=== PATIENT | female | born 1990 | race Caucasian/White ===

== ENCOUNTER 2017-05-18 08:21 | Emergency (ER) | payer SELFPAY ==
--- NOTE | 2017-05-18 09:38 | UC ---
Bite Injury/Animal HPI - HPI Summary HPI Summary: Patient presents s/p cat bite of the right palm, and scratches of the left and right forearms, that occurred while at work this morning. Bleeding is controlled. She states she as well as the animal have had rabies vaccination. She was required to come in for an evaluation. She denies any numbness or tingling of the hands or fingers, and reports full range of motion. - History of Current Complaint Chief Complaint: UCBiteInjury Stated Complaint: CAT BITE Time Seen by Provider: 05/18/17 09:15 Hx Obtained From: Patient Hx Last Menstrual Period: 05/01/17 ?: No Severity Currently: Moderate Severity Initially: Moderate Onset/Duration: Sudden Onset, Lasting Hours Type of Bite: Animal Has Animal Been Immunized?: Yes Character: Puncture, Abrasion/Laceration Aggravating Factor(s): Nothing Alleviating Factor(s): Nothing Associated Signs And Symptoms: Positive: Erythema Hx of Bite: Unprovoked Animal Available for Observation: Yes Animal Control Notified: Yes - Allergies/Home Medications Allergies/Adverse Reactions: Allergies Allergy/AdvReac Type Severity Reaction Status Date / Time No Known Allergies Allergy Verified 05/18/17 08:35 PMH/Surg Hx/FS Hx/Imm Hx Previously Healthy: Yes - Surgical History Surgical History: None - Family History Known Family History: Positive: Cardiac Disease - Social History Occupation: Employed Full-time Lives: Alone Alcohol Use: None Substance Use Type: None Smoking Status (MU): Never Smoked Tobacco Review of Systems Constitutional: Negative Skin: Other - puncture wound, and abrasions of hands and forearms. Eyes: Negative ENT: Negative Motor: Negative Neurovascular: Negative Musculoskeletal: Negative Neurological: Negative All Other Systems Reviewed And Are Negative: No Physical Exam Triage Information Reviewed: Yes Appearance: Well-Appearing Vital Signs: Initial Vital Signs Temp 99.2 F 05/18/17 08:31 Pulse 100 05/18/17 08:31 Resp 16 05/18/17 08:31 BP 134/79 05/18/17 08:31 Pulse Ox 100 05/18/17 08:31 Vital Signs Reviewed: Yes Eye Exam: Normal ENT Exam: Normal Dental Exam: Normal Neck exam: Normal Neck: Positive: 1 Respiratory Exam: Normal Cardiovascular Exam: Normal Musculoskeletal Exam: Normal Skin Exam: Other - right palm of hand superficial puncture wound noted. left forearm with several linear abrasions noted. surrounding redness. bleeding controlled. vasc; radial and ulnare pulses presents. neruo. no deficits. rom intact in all planes. Bite Injury Course/Dx - Course Course Of Treatment: Patient presents s/p cat bite and scratches onset prior to arrival. She and the animal are fully immunzed against rabies. The wounds were cleaned and bacitracin applied. Augmentin 875 mg by mouth twice daily x 10 days. Wound care instructions were provided as well as signs and symtpoms of infections which included keep clean and dry, apply antibiotics ointment, and if increased redness, swelling, pain or drainage must go directly to the emergency department for evaluation. Patient verbalzied and was in agreement with the discharge plan. - Differential Dx/Diagnosis Differential Diagnosis/HQI/PQRI: Puncture, Other - cat bite abrasions Provider Diagnoses: cat bite. puncture wound. abrasions Discharge - Discharge Plan Condition: Stable Disposition: HOME Prescriptions: Amoxicillin/Clavulanate TAB* [Augmentin TAB 875*] 875 mg PO BID #20 tab Patient Education Materials: Animal Bite (ED) Referrals: Nasima Paulino MD [Primary Care Provider] -
[2017-05-18] MEDS ORDERED: Tetan/Diph/Pertus SYR(Tdap)* 0.5 ML SYR(BOOSTRIX) use SYR IM ONE (10:00)
[2017-05-18 11:07] VITALS: BP 108/62
== END 2017-05-18 10:40 | disposition home or self-care (01) ==
LOC: UCEAST 08:21
DX: T14.8XXA Other injury of unspecified body region, initial encounter (principal); W55.01XA Bitten by cat, initial encounter; Y92.9 Unspecified place or not applicable
CPT/HCPCS: 90471; 90715; 99213; G0463

== ENCOUNTER 2018-12-09 14:10 | Emergency (ER) | payer OTHER ==
[2018-12-09 14:44] VITALS: BP 143/90
--- NOTE | 2018-12-09 14:56 | UC ---
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 Her last tetanus is up-to-date and she also has the rabies immunization series herself. The cat itself was up-to-date on immunizations as well. - History of Current Complaint Chief Complaint: UCBiteInjury Stated Complaint: CAT BITE Time Seen by Provider: 12/09/18 14:44 Hx Obtained From: Patient Hx Last Menstrual Period: 12/08/18 ?: No Severity Currently: Mild Severity Initially: Mild Pain Intensity: 2 Onset/Duration: Sudden Onset Type of Bite: Animal - Cat that was up-to-date on immunizations. Has Animal Been Immunized?: Yes Character: Abrasion/Laceration - Superficial scratch to left ring finger Aggravating Factor(s): Nothing Alleviating Factor(s): Nothing Associated Signs And Symptoms: Positive: Negative Animal Available for Observation: Yes - Risk Factors Infection/Sepsis Risk Factors: Negative - Allergies/Home Medications Allergies/Adverse Reactions: Allergies Allergy/AdvReac Type Severity Reaction Status Date / Time No Known Allergies Allergy Verified 12/09/18 14:45 PMH/Surg Hx/FS Hx/Imm Hx Previously Healthy: Yes - Surgical History Surgical History: Yes Surgery Procedure, Year, and Place: wisdom teeth as teenager - Family History Known Family History: Positive: Cardiac Disease - Social History Alcohol Use: None Substance Use Type: None Smoking Status (MU): Never Smoked Tobacco Review of Systems All Other Systems Reviewed And Are Negative: Yes Skin: Positive: Other - Superficial scratch to palmar aspect of left ring finger from a cat bite. Is Patient Immunocompromised?: No Physical Exam Triage Information Reviewed: Yes Appearance: Well-Appearing, No Pain Distress, Well-Nourished Vital Signs: Initial Vital Signs Temp 98.6 F 12/09/18 14:39 Pulse 80 12/09/18 14:39 Resp 16 12/09/18 14:39 BP 143/90 12/09/18 14:39 Pulse Ox 100 12/09/18 14:39 Vital Signs Reviewed: Yes Musculoskeletal: Positive: Strength Intact, ROM Intact - Good peripheral pulses neuro sensation capillary refill, good finger strength with flexion extension against resistance Neurological Exam: Normal Psychological Exam: Normal Skin: Positive: Other - Superficial scratch to palmar aspect of proximal portion left ring finger approximately 1.0 cm long. Bleeding. 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 She is up-to-date on her rabies and tetanus immunizations and the cat who bit her is also up-to-date on immunizations. At this point in time I don't feel this is getting infected however she is to observe it for any erythema or swelling or increased pain and start Augmentin if it looks like it starting an infection. She can do some warm salt water soaks 4-6 times a day as well. Patient is agreeable to plan of action. - Differential Dx/Diagnosis Provider Diagnosis: Cat bite of finger Discharge - Sign-Out/Discharge Documenting (check all that apply): Patient Departure All imaging exams completed and their final reports reviewed: No Studies - Discharge Plan Condition: Fair Disposition: HOME Prescriptions: Amoxicillin/Clavulanate TAB* [Augmentin TAB 875*] 875 mg PO BID 10 Days #20 tab Patient Education Materials: Animal Bite (ED) Referrals: Nasima Paulino MD [Primary Care Provider] - Additional Instructions: Keep the area clean and dry but you may want to do some warm salt water soaks. Watch for signs of infection. You do not need to start the antibiotic unless the area starts getting hot, red and tender. - Billing Disposition and Condition Condition: FAIR Disposition: Home
== END 2018-12-09 14:56 | disposition home or self-care (01) ==
LOC: UCEAST 14:10
DX: S60.415A Abrasion of left ring finger, initial encounter (principal); W55.01XA Bitten by cat, initial encounter; Y93.K9 Activity, other involving animal care; Y92.89 Other specified places as the place of occurrence of the external cause; Y99.0 Civilian activity done for income or pay
CPT/HCPCS: 99212; G0463

== ENCOUNTER 2019-09-05 00:12 | Inpatient (IN) | payer BC ==
[2019-09-05] MEDS ORDERED: Buffered Lidocaine 1% SYRIN* 1 ML/SYRINGE INTRADERM ONE (01:48)
[2019-09-05] MEDS ORDERED: Lactated Ringers 1000 ML Bag* 1,000 ML IV ONE ×2 (01:48→06:41)
--- NOTE | 2019-09-05 02:00 | HP ---
General Information - Reason for Visit Patient reports contractions increasing in intensity since this afternoon. Also has had increased mucusy/fluid discharge. - General Information Maternal Age: 29 Grav: 1 Para: 0 SAB: 0 IEA: 0 Estimated Due Date: 09/14/19 Determined By: LMP Maternal Blood Type and Rh: O Positive - Results this Serology/RPR Result: Non-Reactive Rubella Result: Immune HBsAg Result: Negative HIV Result: Negative GBS Culture Result: Negative Past Medical History Delivery History: See Records Delivery History Comment: No previous pregnancies Pertinent Past Medical History: See Records Past Medical History Comment: Migraine, varicosities Pertinent Past Surgical History: See Records Past Surgical History Comment: [place] teeth removal 2008 Left saphenous vein ablation 2018 Pertinent Family History: See Records Family History Comment: COPD HTN Kidney stones aneurysm - Antepartal Records Antepartal Records: Reviewed, Complicated by: - Obesity Review of Systems Constitutional: Uncomfortable CV Complaint: No Respiratory: Shortness of Breath: No Gastrointestinal: No Nausea/Vomiting, Normal Bowel Movement Genitourinary: Leaking Fluid, No Dysuria, No Bleeding Musculoskeletal: Contractions Neurological: No Headache, No Visual Changes Movement: Normal Exam Allergies/Adverse Reactions: Allergies No Known Allergies Allergy (Verified 12/09/18 14:45) Initial BP with small cuff 146/83, repeat with larger cuff 137/82 T 98.8 HR 84 RR 18 O2 100 Lab Values - Entire Visit: Laboratory Tests 09/05/19 01:35 Vag Amniotic Fld Detect Positive - Measurements Height: 5 ft 5 in Weight: 251 lb Weight in lbs: [id number] Body Mass Index (BMI): 41.8 Pre- Weight: 228 lb Weight Gained This : 23 lbs and 0 ozs - Exam Breast: Breast Exam Deferred CVA: No CVA Tenderness Extremities: No Edema Heart: Normal Rhythm/Heart Sounds HEENT: No Significant Findings Lungs: Clear Bilaterally Rectal: Rectal Exam Deferred Reflexes: DTR 2+, - - No clonus Thyroid: - - WNL @ entry to care - Abdominal Exam Abdomen Exam: Non-Tender, Fundal Height Consistent with Dates - Ultrasound/Biophysical Profile Ultrasound Status: Not Done Targeted Exam Findings Estimated Weight: 7.5lb Cervical Exam: 3cm Effacement: 80% Station: 0 Presenting Part: Vertex Membrane Status: Questionable SROM Amniotic Fluid Evaluation: Positive ROM Plus Bleeding/Discharge: Bloody Show EFM Findings - External Monitor Findings Baseline Heart Rate: 125 Contractions: Irregular, Moderate, 45-90 Seconds Contraction Frequency: q 2-4 min Assessment/Plan - Assessment IUP @ 38+5 weeks gestation in early labor. Confirmed rupture of membranes. No evidence acidemia. - Obstetrical Risk Factors Obstetrical Risk Factors: Obesity - Plan Plan: Admit - Anticipate Vaginal Delivery Plan Comment: Admit to L&D. PARQ discussion of options for therapeutic rest, patient will consider. Prefers to avoid epidural if possible. - Date/Time of Admission Date of Admission: 09/05/19 Time of Admission: 01:58
[2019-09-05 02:19] LABS: Urine Benzodiazepine Screen None Detected (None Detect); Urine Opiates Screen None Detected (None Detect)
[2019-09-05] MEDS ORDERED: hydrOXYzine HCL TAB* 50 MG PO PRN (02:21)
--- NOTE | 2019-09-05 04:56 | PN ---
Progress Note - Progress Note Date of Service: 09/05/19 Note: S: Patient reports "this isn't fun anymore", contractions are stronger. She vomited then felt nearly syncopal, resolved with lying in bed. Would like to consider pain medications. O: VE 7cm/100/0 FHT 115, +accels, no decels, mod carolyne UCs q 2-4 min VSS, afebrile A: IUP @ 38+5 weeks gestation in active labor Membrane ruptured No evidence metabolic acidemia P: PARQ discussion nitrous for labor management; patient in agreement. Initiate self-administered nitrous oxide, monitor per protocol. Patient aware may still consider epidural.
--- NOTE | 2019-09-05 05:29 | PN ---
Progress Note - Progress Note Date of Service: 09/05/19 Note: Nitrous worked well for a brief period but now desires epidural. PARQ discussion of procedure and patient in agreement. Will initiate IV, labs, fluids and page anesthesia.
[2019-09-05] MEDS ORDERED: OBEPIDURAL* 250 ML EPIDURAL ONE (05:34)
[2019-09-05 05:36] LABS: ABS Basophils 0.1 10^3/ul (0-0.2); ABS Eosinophils 0.1 10^3/ul (0-0.6); ABS Lymphocytes 2.3 10^3/ul (1.0-4.8); ABS Monocytes 0.6 10^3/ul (0-0.8); Eosinophil % 0.7 %; Hematocrit 36 % (35-47); Hemoglobin 12.5 g/dL (12.0-16.0); Mean Corpuscular HGB Conc 35 g/dL (31-36); Mean Corpuscular Hemoglobin 32 pg (27-31); Mean Corpuscular Volume 93 fL (80-97); Mean Platelet Volume 7.9 fL (7.4-10.4); Nucleated Red Blood Cells % 0.1; Platelet Count 324 10^3/uL (150-450); Red Blood Count 3.85 10^6 /uL (3.70-4.87); Red Cell Distribution Width 13 % (10-15)
[2019-09-05] MEDS: Lactated Ringers 1000 ML Bag* 1,000 ML IV SCH ×2 (06:02→08:04)
[2019-09-05] MEDS ORDERED: EPHEDrine (Pressors)* 50 MG/ML VIAL IV PUSH PRN ×2 (06:41)
[2019-09-05] MEDS ORDERED: Sodium Citrate/Citric Acid* 15 ML UDC PO PRN (06:41)
[2019-09-05] MEDS ORDERED: Phenylephrine 40 MCG/ML SYRINGE IV PUSH PRN ×2 (06:41)
[2019-09-05] MEDS ORDERED: Famotidine TAB* 20 MG PO PRN (06:41)
[2019-09-05] MEDS ORDERED: OBEPIDURAL* 250 ML EPIDURAL SCH (07:00)
[2019-09-05] MEDS ORDERED: Lactated Ringers 1000 ML Bag* 1,000 ML IV SCH ×2 (07:00→13:00)
--- NOTE | 2019-09-05 07:35 | PN ---
Progress Note - Progress Note Date of Service: 09/05/19 Note: S: Very comfortable with epidural, trying to get a little rest. O: VE by RN 8cm/100 FHT 115, +accels, few variable decels, mod carolyne UCs q 2-4 min VSS A: IUP in active labor Doubt acidemia P: Encourage rest vs position changes side to side, consider peanut ball if tolerated.
--- NOTE | 2019-09-05 10:07 | PN ---
Progress Note - Progress Note Date of Service: 09/05/19 Note: S: Assuming care of Jacqui Crowe a 29 yo in active labor. Comfortable s/ p epidural placement. Napping at present O: BP 104/51 HR 71 RR 18 T 97.9 FHT baseline 110bpm. Moderate variability. +Accels. No decels UCs q 2-6 VE deferred as pt sleeping and in presence of rupture A: IUP at 38-5/7 in labor No evidence of metabolic acidemia Inadequate UC pattern P: PARQ IV pitocin. Pt agrees. Close monitoring of maternal/ status.
[2019-09-05] MEDS ORDERED: Oxytocin in LR* 20 UNITS/1,000 ML BAG IVPB SCH ×2 (10:15→13:00)
[2019-09-05] MEDS ORDERED: Witch Hazel PAD* JAR ONE (12:25)
[2019-09-05] MEDS ORDERED: Dibucaine 1% 28.35 GM TUBE ONE (12:25)
[2019-09-05] MEDS ORDERED: Glycerin ADULT SUPP PR PRN (12:41)
[2019-09-05] MEDS ORDERED: Acetaminophen TAB* 325 MG PO PRN (12:41)
[2019-09-05] MEDS ORDERED: Dibucaine 1% 28.35 GM TUBE PR PRN (12:41)
[2019-09-05] MEDS ORDERED: Witch Hazel PAD* JAR TOPICAL PRN (12:41)
--- NOTE | 2019-09-05 12:51 | PROCNOTE ---
[facility] OB: Delivery Note - Delivery A Date of : 09/05/19 Time of : 12:12 [place] Sex: Female Score 1 Minute: 8 Score 5 Minutes: 9 Gestational Age in Weeks and Days at Delivery: 38 Weeks and 5 Days Delivery Method: Spontaneous Vaginal Labor: Spontaneous Did Patient attempt ?: N/A, No Previous Amniotic Fluid: Clear Estimated Blood Loss: 350 Anesthesia/Analgesia: CEI for Labor - placed by Dr. Nevarez, Nitrous-Labor Delivered By: Jac Guzman - Nursery Level of Nursery: Regular/Bedside - Perineum Perineal Injury: 2nd Degree - repaired with 3-0 Rapide in the usual fashion under local infiltration 1% lidocaine and epidural analgesia. Anatomy restored and good hemostasis achieved. Pt tolerated well. Perineal Repair: By Delivering Practioner - Events Delivery Events of Note: Pitocin During Labor, Supplemental O2 to Mother - Additional Delivery Notes Additional Delivery Notes: Patient admitted in labor. After trial of nitrous oxide opted for labor epidural with excellent pain relief. Once comfortable IV pitocin augmentation started with expected progression to complete. Length of active phase 9 hours, 46 min. Pushed x 1 hour, 10 min. liveborn female. Slow, controlled delivery of head. IVAN to LOT. Shoulders followed easily. Nuchal cord x 1 noted. [place] delivered through. Infant vigorous with spontaneous cry. HR> 100bpm. Delivered to maternal abdomen. Cord clamped x 2 and cut by FOB once pulsations ceased. Spontaneous delivery intact placenta. Membranes complete. Fundus firm to massage with IV pitocin infusing. Minimal bleeding noted. Repair as above. EBL 350mL. At time of note mother and infant in stable condition. Planning to breast feed.
[2019-09-05] MEDS: Docusate CAP* 100 MG PO SCH ×2 (16:08→22:05)
[2019-09-05] MEDS: Ibuprofen TAB* 600 MG PO SCH ×2 (16:08→22:05)
[2019-09-05] MEDS ORDERED: Simethicone TAB* 80 MG TAB.CHEW PO SCH (17:30)
[2019-09-05] MEDS ORDERED: Lidocaine 1% INJ* 10 MG/ML 30 ML SDV ONE (18:51)
[2019-09-06] MEDS: Ibuprofen TAB* 600 MG PO SCH ×4 (04:08→21:27)
[2019-09-06 06:39] LABS: ABS Eosinophils 0.1 10^3/ul (0-0.6); ABS Monocytes 0.7 10^3/ul (0-0.8); ABS Neutrophils 12.5 10^3/ul (1.5-7.7); Eosinophil % 0.8 %; Hematocrit 31 % (35-47); Hemoglobin 10.7 g/dL (12.0-16.0); Mean Corpuscular HGB Conc 34 g/dL (31-36); Mean Corpuscular Hemoglobin 32 pg (27-31); Mean Corpuscular Volume 95 fL (80-97); Mean Platelet Volume 7.9 fL (7.4-10.4); Platelet Count 259 10^3/uL (150-450); Red Blood Count 3.31 10^6 /uL (3.70-4.87); Red Cell Distribution Width 14 % (10-15); White Blood Count 15.3 10^3/uL (3.5-10.8)
[2019-09-06] MEDS ORDERED: Influenza VAC *QUAD* 2019-20* 0.5 ML SYRINGE IM ONE (08:00)
[2019-09-06] MEDS ORDERED: Ferrous Gluconate TAB* 324 MG TAB PO SCH (09:00)
[2019-09-06] MEDS: Docusate CAP* 100 MG PO SCH ×4 (09:17→21:27)
[2019-09-07 08:06] VITALS: BP 126/65
[2019-09-07] MEDS: Ibuprofen TAB* 600 MG PO SCH (09:30)
[2019-09-07] MEDS: Docusate CAP* 100 MG PO SCH (09:30)
== END 2019-09-07 12:30 | disposition home or self-care (01) | DRG 560 ==
LOC: MCHOBOUT 00:12 → MCHOB 01:58
PROVIDERS: ADMIT Midwife; ATTEND Midwife
PROC: 10E0XZZ Delivery of Products of Conception, External Approach (ICD-10-PCS; principal; 2019-09-05)
PROC: 4A1HXCZ Monitoring of Products of Conception, Cardiac Rate, External Approach (ICD-10-PCS; 2019-09-05)
PROC: 0KQM0ZZ Repair Perineum Muscle, Open Approach (ICD-10-PCS; 2019-09-05)
DX: O99.214 Obesity complicating childbirth (principal); Z37.0 Single live birth; O69.81X0 Labor and delivery complicated by cord around neck, without compression, not applicable or unspecified; O77.0 Labor and delivery complicated by meconium in amniotic fluid; O70.1 Second degree perineal laceration during delivery; Z3A.38 38 weeks gestation of pregnancy
CPT/HCPCS: 36415; 80307; 84112; 85025; 86850; 86900; 86901; 90686; A9270-GY; G0480

== ENCOUNTER 2022-10-06 19:21 | Inpatient (IN) ==
[2022-10-06] MEDS ORDERED: Lactated Ringers 1000 ml BAG 1,000 ML IV ONE ×2 (19:33→21:52)
[2022-10-06] MEDS ORDERED: Nalbuphine 10 MG/ML 1 ML VIAL IV PRN (19:33)
[2022-10-06] MEDS ORDERED: Promethazine INJ(RESTRICTED) 25 MG/ML 1 ml VIAL IV PRN (19:33)
[2022-10-06] MEDS ORDERED: Buffered Lidocaine 1% SYRIN 1 ml INTRADERM ONE (19:33)
[2022-10-06] MEDS ORDERED: Lactated Ringers 1000 ml BAG 1,000 ML IV SCH ×2 (20:00→22:00)
[2022-10-06 20:36] LABS: ABS Eosinophils 0.1 10^3/ul (0-0.6); ABS Lymphocytes 2.1 10^3/ul (1.0-4.8); ABS Monocytes 0.4 10^3/ul (0-0.8); Eosinophil % 0.5 %; Hematocrit 36 % (35-47); Hemoglobin 11.8 g/dL (12.0-16.0); Lymphocyte % 18.1 %; Mean Corpuscular HGB Conc 33 g/dL (31-36); Mean Corpuscular Hemoglobin 30 pg (27-31); Mean Corpuscular Volume 92 fL (80-97); Mean Platelet Volume 8.1 fL (7.4-10.4); Nucleated Red Blood Cells % 0.1; Platelet Count 303 10^3/uL (150-450); Red Blood Count 3.93 10^6 /uL (3.70-4.87); Red Cell Distribution Width 13 % (10-15); White Blood Count 11.6 10^3/uL (3.5-10.8)
[2022-10-06 21:03] LABS: Urine Benzodiazepine Screen None Detected (None Detect); Urine Cannabinoids Screen None Detected (None Detect); Urine Opiates Screen None Detected (None Detect)
[2022-10-06] MEDS ORDERED: Lidocaine 1.5% EPI 1:200,000 30 ML SDV ONE (21:05)
[2022-10-06] MEDS ORDERED: OBEPIDURAL (200 ML) 200 ML EPIDURAL ONE (21:06)
[2022-10-06] MEDS ORDERED: Lactated Ringers 1000 ml BAG 500 ML IV PRN ×2 (21:52)
[2022-10-06] MEDS ORDERED: Phenylephrine 40 mcg/mL 10mL (400mcg) SYRINGE IV PUSH PRN ×2 (21:52)
[2022-10-06] MEDS ORDERED: Sodium Citrate/Citric Acid LIQ 15 ML UDC PO PRN (21:52)
[2022-10-06] MEDS ORDERED: OBEPIDURAL (200 ML) 200 ML EPIDURAL SCH (22:00)
[2022-10-06 22:41] LABS: Urine Appearance Clear; Urine Bilirubin Negative (Negative); Urine Blood 2+ (Negative); Urine Color Yellow; Urine Glucose Negative (Negative); Urine Ketones Negative (Negative); Urine Nitrite Negative (Negative); Urine Protein Negative (Negative); Urine Specific Gravity 1.011 (1.002-1.030); Urine Urobilinogen Negative (Negative)
[2022-10-06] MEDS ORDERED: Oxytocin in LR 20,000 MILLI.UNIT/1,000 ML BAG IV SCH (22:45)
[2022-10-06] MEDS ORDERED: Ondansetron 4 mg VIAL 2 MG/ML 2 ml VIAL IV PRN (22:46)
[2022-10-06] MEDS ORDERED: Calcium Carb (TUMS) 500 mg CHEW TAB PO PRN (22:47)
[2022-10-06 22:52] LABS: Urine Bacteria Absent (Absent); Urine Red Blood Cell 3+(>10/hpf) (Absent); Urine Squamous Epithelial Cell Present (Absent); Urine White Blood Cell Trace(0-5/hpf) (Absent)
[2022-10-07] MEDS ORDERED: Tranexamic Acid 1 GM/100ML BAG 0 MG/0 ML BAG IV ONE (00:42)
[2022-10-07] MEDS ORDERED: Dibucaine 1% OINT 28.35 GM TUBE PR PRN (01:34)
[2022-10-07] MEDS ORDERED: Witch Hazel PAD JAR TOPICAL PRN (01:34)
[2022-10-07] MEDS ORDERED: Glycerin ADULT 2.4 gm SUPP PR PRN (01:34)
[2022-10-07] MEDS ORDERED: Oxytocin in LR 20,000 MILLI.UNIT/1,000 ML BAG IV SCH (01:45)
[2022-10-07] MEDS ORDERED: Lactated Ringers 1000 ml BAG 1,000 ML IV SCH (02:00)
[2022-10-07] MEDS ORDERED: Lidocaine 1% VIAL 10 MG/ML VIAL 30 ML ONE (05:16)
[2022-10-08 06:53] LABS: Hematocrit 31 % (35-47); Hemoglobin 10.8 g/dL (12.0-16.0)
[2022-10-08 08:42] VITALS: BP 111/72
== END 2022-10-08 13:16 | disposition home or self-care (01) | DRG 807 ==
LOC: MCHOBOUT 19:21 → MCHOB 20:54
PROVIDERS: ADMIT Advanced Practice Midwife; ATTEND Advanced Practice Midwife